=== PATIENT | female | born 1965 | race Caucasian/White ===

== ENCOUNTER → 2020-01-02 | Outpatient (CLI) | payer BC | LOC: ZCOL.LAB 16:51 | DX: J06.9 Acute upper respiratory infection, unspecified (principal); Z20.828 Contact with and (suspected) exposure to other viral communicable diseases ==

== ENCOUNTER → 2023-12-08 | Outpatient (CLI) | payer BC | LOC: COL.RAD 10:31 | DX: E04.2 Nontoxic multinodular goiter (principal); M79.89 Other specified soft tissue disorders ==